=== PATIENT | female | born 2000 | race Caucasian/White ===

== ENCOUNTER 2024-07-16 18:40 | Emergency (ER) | payer OTHER ==
[~2024-07-16] VITALS: Ht 167.6 cm; Wt 95.0 kg
[2024-07-16 18:41] VITALS: O2SAT 97
[2024-07-16 18:56] VITALS: BP 129/63; PULSE 103; RESP 16; TEMP 36.6; O2SAT 99
[2024-07-16 21:07] LABS: BASOPHILS % 0.5 % (0.0-2.0); EOSINOPHILS % 2.1 % (0.0-5.0); HEMATOCRIT. 39.4 % (36.0-48.0); HEMOGLOBIN. 13.1 g/dL (12.0-16.0); MEAN CORPUSCULAR HEMOGLOBIN 29.6 pg (28.0-32.0); MEAN CORPUSCULAR HGB CONC 33.2 g/dL (31.0-37.0); MEAN CORPUSCULAR VOLUME 89.1 fL (81.0-99.0); MEAN PLATELET VOLUME 7.8 fl (7.4-10.4); MONOCYTES % 6.2 % (2.0-8.0); NEUTROPHILS % 62.2 % (40.0-76.0); PLATELET 327 x1000/uL (130-400); RED BLOOD CELL COUNT 4.42 mill/uL (4.2-5.4); RED CELL DISTRIBUTION WIDTH 12.7 % (11.6-14.6); WHITE BLOOD COUNT 12.3 x1000/uL (4.5-11.0)
[2024-07-16 21:13] LABS: CHLORIDE 105 mEq/L (98-107); POTASSIUM 4.8 mEq/L (3.5-5.1); SODIUM 140 mEq/L (136-145)
[2024-07-16 21:14] LABS: CALCIUM 9.8 mg/dL (8.7-10.4); CARBON DIOXIDE 28 mEq/L (21-32)
[2024-07-16 21:18] LABS: CREATININE 0.8 mg/dL (0.6-1.0)
[2024-07-16 21:19] LABS: GLUCOSE 94 mg/dL (70-105); UREA NITROGEN BLOOD 10 mg/dL (9-23)
== END 2024-07-16 22:15 | disposition left against medical advice (07) ==
LOC: ER 18:40
DX: R55 Syncope and collapse (principal); F41.9 Anxiety disorder, unspecified; F32.A Depression, unspecified; Z98.890 Other specified postprocedural states
CPT/HCPCS: 36415; 80048; 85025; 93005; 99284